=== PATIENT | female | born 1980 | race African-American/Black ===

== ENCOUNTER 2016-12-22 07:38 | Emergency (ER) | payer MEDICAID ==
[~2016-12-22] VITALS: Ht 152.4 cm; Wt 70.0 kg
[~2016-12-22 07:38] MED LIST: BUTA1CAP PO; ZOFR8TAB4 SL
[2016-12-22 07:40] VITALS: BP 126/78; PULSE 100; RESP 17; TEMP 98.6; O2SAT 97
--- NOTE | 2016-12-22 08:12 | PD ---
HPI Chief Complaint: Musculoskeletal Complaint Time Seen by Provider: 08:02 Travel History International Travel<30 days: No Contact w/Intl Traveler<30days: No Traveled to known affect area: No History of Present Illness HPI 36-year-old female complains of right hip pain. Patient states she started having sharp pain posterior aspect the right hip about 3 months ago. Patient states that the pain has been intermittent since then. Patient states the pain is sharp stopping pain started on the posterior aspect the right hip with radiation down the right leg. Patient denies any injury. Patient denies any fever chills. Patient status post knee surgery and left shoulder surgery in the past. Patient has been taking Advil Tylenol for pain. PFSH Past Medical History Ulcer: Yes ?: Not LMP: 1 WEEK AGO Dilation and Curettage (D&C): Yes Tubal Ligation: Yes Social History Alcohol Use: No Tobacco Use: No Substance Use: No Allergies-Medications (Allergen,Severity, Reaction): Coded Allergies: Seafood (Verified Allergy, Intermediate, SWELLING, 12/22/16) Reported Meds & Prescriptions Reported Meds & Active Scripts Active No Active Prescriptions or Reported Medications Review of Systems General / Constitutional: No: Fever Eyes: No: Visual changes HENT: No: Headaches Cardiovascular: No: Chest Pain or Discomfort Respiratory: No: Shortness of Breath Gastrointestinal: No: Abdominal Pain Genitourinary: No: Dysuria Musculoskeletal: Positive: Pain Skin: No Rash Neurologic: No: Weakness Psychiatric: No: Depression Endocrine: No: Polydipsia Hematologic/Lymphatic: No: Easy Bruising Physical Exam Narrative GENERAL: Well-nourished, well-developed patient. SKIN: Focused skin assessment warm/dry. HEAD: Normocephalic. EYES: No scleral icterus. No injection or drainage. NECK: Supple, trachea midline. No JVD or lymphadenopathy. CARDIOVASCULAR: Regular rate and rhythm without murmurs, gallops, or rubs. RESPIRATORY: Breath sounds equal bilaterally. No accessory muscle use. GASTROINTESTINAL: Abdomen soft, non-tender, nondistended. MUSCULOSKELETAL: No cyanosis, or edema. BACK: Patient has moderate tenderness on palpation posterior aspect the right hip, sciatic notch area, without obvious deformity. No CVA tenderness. Positive straight leg raising right leg. Neurologic exam normal. Data Data Last Documented VS Vital Signs Date Time Temp Pulse Resp B/P Pulse Ox O2 Delivery O2 Flow Rate FiO2 8/5/17 07:40 98.6 100 17 126/78 97 Orders Hip, Uni(Ap&Lat) W Ap Pelvis (12/22/16 08:08) Dexamethasone Inj (Decadron Inj) (12/22/16 08:15) MDM Medical Decision Making Medical Screen Exam Complete: Yes Emergency Medical Condition: Yes Interpretation(s) X-ray right hip shows no acute bony injury. Differential Diagnosis Differential diagnosis including sciatica, arthralgia, bursitis, tendinitis, fracture, dislocation. Narrative Course 36-year-old female with posterior aspect right hip pain with radiation to the right leg. Decadron 8 mg IM. Diagnosis Primary Impression: Right sided sciatica Patient Instructions: General Instructions Additional Instructions: Take medication as directed. Follow-up with personal physician and orthopedist. Return if worse. Med/Other Pt SpecificInfo: Prescription(s) given Scripts Prednisone 20 Mg Tab20 Mg PO DAILY #10 TAB Prov:Los Armijo MD 12/22/16 Tramadol (Ultram)50 Mg Tab50 Mg PO Q6H PRN (PAIN) #20 TAB Prov:Los Armijo MD 12/22/16 Meloxicam (Mobic)15 Mg Tab15 Mg PO DAILY #30 TAB Prov:Los Armijo MD 12/22/16 Disposition: 01 DISCHARGE HOME Condition: Stable Los Armijo MD Dec 22, 2016 08:12
[2016-12-22] MEDS ORDERED: DEXAMETHASONE SOD PHOS 4 MG/ML VIAL IM ONE (08:15)
--- NOTE | 2016-12-22 08:55 | RADRPT ---
EXAM DATE/TIME: 12/22/2016 08:11 [place] COMPARISON: No previous studies available for comparison. INDICATIONS : Right posterior hip pain for 2 months. MEDICAL HISTORY : None. SURGICAL HISTORY : None. ENCOUNTER: Initial ACUITY: 2 months PAIN SCORE: 8/10 LOCATION: Right posterior hip. FINDINGS: AP view of the pelvis with 2 views of the right hip demonstrate no fracture or dislocation. Mineraliz ation is within normal limits. There is no significant arthropathy. No soft tissue abnormality is bailey ntified. CONCLUSION: No acute abnormality is identified. Song Funk MD on December 22, 2016 at 8:52 Board Certified Radiologist. This report was verified electronically.
[2016-12-22] MEDS ORDERED: PRED20 PO (09:08)
[2016-12-22] MEDS ORDERED: ULTR50TA5 PO (09:08)
[2016-12-22] MEDS ORDERED: MOBI15TA PO (09:08)
== END 2016-12-22 09:54 | disposition home or self-care (01) ==
LOC: PHED 07:38
DX: M54.31 Sciatica, right side (principal)
CPT/HCPCS: 73502; 96372; 99284; J1100

== ENCOUNTER 2017-05-16 08:06 | Emergency (ER) | payer MEDICAID ==
[~2017-05-16] VITALS: Ht 172.7 cm; Wt 68.0 kg
[~2017-05-16 08:06] MED LIST changes: -BUTA1CAP PO; +MOBI15TA PO; +PRED20 PO; +TRAM50 PO; -ZOFR8TAB4 SL
[2017-05-16 08:08] VITALS: BP 122/83; PULSE 97; RESP 16; TEMP 98.5; O2SAT 98
[2017-05-16] MEDS ORDERED: SODIUM CHLOR 0.9% 1000 ML INJ 1,000 ML IV SCH (08:29)
[2017-05-16] MEDS ORDERED: SODIUM CHLORIDE 0.9% FLUSH 10 ML FLUSH IV FLUSH PRN (08:30)
[2017-05-16] MEDS ORDERED: ONDANSETRON HCL 4 MG/2 ML VIAL IVP ONE (08:30)
[2017-05-16] MEDS ORDERED: HYDROmorphone HCL PF 2 MG/ML VIAL IVS ONE (08:30)
--- NOTE | 2017-05-16 08:37 | PD ---
HPI Chief Complaint: GI Complaint Time Seen by Provider: 08:25 Travel History International Travel<30 days: No Contact w/Intl Traveler<30days: No Traveled to known affect area: No History of Present Illness HPI This 37-year-old female is complaining of lower abdominal pain. She says she been having the pain for about 2 days. The pain does come and go. She has vomited 3 times. She has some chronic abdominal pain for which she is on ulcer medication. This pain seems a little bit different than her usual pain. She has had a tubal ligation in the past. She is not aware of fever or chills [facility] Past Medical History Ulcer: Yes ?: Not LMP: 04/23/17 Dilation and Curettage (D&C): Yes Tubal Ligation: Yes Social History Alcohol Use: No Tobacco Use: No Substance Use: No Allergies-Medications (Allergen,Severity, Reaction): Coded Allergies: Fish Containing Products (Unverified Allergy, Intermediate, SWELLING, ) Reported Meds & Prescriptions Reported Meds & Active Scripts Active No Active Prescriptions or Reported Medications Review of Systems Except as stated in HPI: all other systems reviewed are Neg General / Constitutional: No: Fever, Chills Eyes: No: Diploplia, Blurred Vision HENT: No: Headaches, Vertigo Cardiovascular: No: Chest Pain or Discomfort, Palpitations Respiratory: No: Cough, Shortness of Breath Gastrointestinal: Positive: Nausea, Vomiting, Abdominal Pain Genitourinary: No: Frequency, Dysuria Skin: No Rash, No Itching Neurologic: No: Weakness, Dizziness Psychiatric: No: Anxiety, Depression Endocrine: No: Heat Intolerance Physical Exam Narrative GENERAL: Well-developed female SKIN: Focused skin assessment warm/dry. HEAD: Atraumatic. Normocephalic. EYES: Pupils equal and round. No scleral icterus. No injection or drainage. ENT: No nasal bleeding or discharge. Mucous membranes pink and moist. NECK: Trachea midline. No JVD. CARDIOVASCULAR: Regular rate and rhythm. No murmur appreciated. RESPIRATORY: No accessory muscle use. Clear to auscultation. Breath sounds equal bilaterally. GASTROINTESTINAL: Abdomen soft, non-tender, nondistended. Hepatic and splenic margins not palpable. Pelvic: Os is closed. Slight discharge. No pain with movement of the cervix MUSCULOSKELETAL: No obvious deformities. No clubbing. No cyanosis. No edema. NEUROLOGICAL: Awake and alert. No obvious cranial nerve deficits. Motor grossly within normal limits. Normal speech. PSYCHIATRIC: Appropriate mood and affect; insight and judgment normal. Data Data Last Documented VS Vital Signs Date Time Temp Pulse Resp B/P (MAP) Pulse Ox O2 Delivery O2 Flow Rate FiO2 05/16/17 11:25 74 16 103/65 (78) 100 05/16/17 10:18 Room Air 05/16/17 08:08 98.5 Orders Orders Complete Blood Count With Diff (05/16/17 08:29) Comprehensive Metabolic Panel (05/16/17 08:29) Urinalysis - C+S If Indicated (05/16/17 08:29) Iv Access Insert/Monitor (05/16/17 08:29) Ecg Monitoring (05/16/17 08:29) Oximetry (05/16/17 08:29) Hydromorphone Pf Inj (Dilaudid Pf Inj) (05/16/17 08:30) Ondansetron Inj (Zofran Inj) (05/16/17 08:30) Sodium Chlor 0.9% 1000 Ml Inj (Ns 1000 M (05/16/17 08:29) Sodium Chloride 0.9% Flush (Ns Flush) (05/16/17 08:30) Ed Urine Pregnancytest Poc (05/16/17 08:29) Lipase (05/16/17 08:29) Urine Culture (05/16/17 09:10) Gc And Chlamydia Pcr (05/16/17 10:58) Wet Prep Profile (05/16/17 10:58) Ceftriaxone Inj (Rocephin Inj) (05/16/17 11:00) Labs Laboratory Tests Test 05/16/17 09:00 05/16/17 09:10 05/16/17 11:00 White Blood Count 4.2 TH/MM3 Red Blood Count 4.09 MIL/MM3 Hemoglobin 12.1 GM/DL Hematocrit 37.8 % Mean Corpuscular Volume 92.4 FL Mean Corpuscular Hemoglobin 29.7 PG Mean Corpuscular Hemoglobin Concent 32.2 % Red Cell Distribution Width 13.6 % Platelet Count 223 TH/MM3 Mean Platelet Volume 10.1 FL Neutrophils (%) (Auto) 58.5 % Lymphocytes (%) (Auto) 31.6 % Monocytes (%) (Auto) 7.9 % Eosinophils (%) (Auto) 1.2 % Basophils (%) (Auto) 0.8 % Neutrophils # (Auto) 2.5 TH/MM3 Lymphocytes # (Auto) 1.3 TH/MM3 Monocytes # (Auto) 0.3 TH/MM3 Eosinophils # (Auto) 0.1 TH/MM3 Basophils # (Auto) 0.0 TH/MM3 CBC Comment AUTO DIFF Differential Comment AUTO DIFF CONFIRMED Blood Urea Nitrogen LESS THAN 3 MG/DL Creatinine 0.80 MG/DL Random Glucose 92 MG/DL Total Protein 8.2 GM/DL Albumin 3.7 GM/DL Calcium Level 8.8 MG/DL Alkaline Phosphatase 52 U/L Aspartate Amino Transf (AST/SGOT) 14 U/L Alanine Aminotransferase (ALT/SGPT) 14 U/L Total Bilirubin 0.9 MG/DL Sodium Level 143 MEQ/L Potassium Level 3.7 MEQ/L Chloride Level 103 MEQ/L Carbon Dioxide Level 28.4 MEQ/L Anion Gap 12 MEQ/L Estimat Glomerular Filtration Rate 99 ML/MIN Lipase 66 U/L Urine Color YELLOW Urine Turbidity HAZY Urine pH 6.0 Urine Specific [place] 1.006 Urine Protein NEG mg/dL Urine Glucose (UA) NEG mg/dL Urine Ketones NEG mg/dL Urine Occult Blood MOD Urine Nitrite NEG Urine Bilirubin NEG Urine Leukocyte Esterase TRACE Urine RBC 4-9 /hpf Urine WBC 9-14 /hpf Urine Squamous Epithelial Cells > 8 /hpf Urine Bacteria MANY /hpf Urine Mucus OCC /lpf Microscopic Urinalysis Comment CULTURE INDICATED Clue Cells (Wet Prep) NONE SEEN Vaginal Trichomonas (Wet Prep) NONE SEEN Vaginal Yeast (Wet Prep) NONE SEEN MDM Medical Decision Making Medical Screen Exam Complete: Yes Emergency Medical Condition: Yes Medical Record Reviewed: Yes Differential Diagnosis Differential includes gastroenteritis, nonspecific abdominal pain, UTI, cervicitis Narrative Course White count is normal. Urine does show evidence of urinary tract infection. She'll be on Bactrim released Diagnosis Primary Impression: UTI (urinary tract infection) Scripts Sulfamethoxazole-Trimethoprim (Bactrim DS) 800-160 Mg Tab 1 TAB PO BID for Infection for 7 Days, #14 TAB 0 Refills Prov: Сергей Quintana MD 05/16/17 Disposition: 01 DISCHARGE HOME Condition: Stable Сергей Quintana MD May 16, 2017 08:37
[2017-05-16 08:50] VITALS: RESP 18; O2SAT 98
[2017-05-16 09:18] VITALS: BP 102/67; PULSE 84; RESP 18; O2SAT 98
[2017-05-16 09:27] LABS: AUTOMATED NEUTROPHIL # 2.5 TH/MM3 (1.8-7.7); BASOPHIL % 0.8 % (0.0-2.0); EOSINOPHIL # 0.1 TH/MM3 (0-0.4); EOSINOPHIL % 1.2 % (0.0-4.0); HEMATOCRIT 37.8 % (35.0-46.0); HEMOGLOBIN 12.1 GM/DL (11.6-15.3); LYMPH % 31.6 % (9.0-44.0); LYMPHOCYTE # 1.3 TH/MM3 (1.0-4.8); MEAN CELL VOLUME 92.4 FL (80.0-100.0); MEAN CORPUSCULAR HEMOGLOBIN 29.7 PG (27.0-34.0); MEAN CORPUSCULAR HGB CONC 32.2 % (32.0-36.0); MEAN PLATELET VOLUME 10.1 FL (7.0-11.0); MONO % 7.9 % (0.0-8.0); MONOCYTE # 0.3 TH/MM3 (0-0.9); NEUT % 58.5 % (16.0-70.0); PLATELET COUNT 223 TH/MM3 (150-450); RED BLOOD COUNT 4.09 MIL/MM3 (4.00-5.30); RED CELL DISTRIBUTION WIDTH 13.6 % (11.6-17.2); WHITE BLOOD COUNT 4.2 TH/MM3 (4.0-11.0)
[2017-05-16 09:29] LABS: BILIRUBIN, URINE NEG (NEG); BLOOD, URINE MOD (NEG); GLUCOSE,URINE NEG (NEG); KETONE, URINE NEG (NEG); NITRITE,URINE NEG (NEG); URINE LEUKOCYTE ESTERASE TRACE (NEG)
[2017-05-16 09:30] LABS: URINE COLOR YELLOW (YELLW/STRAW)
[2017-05-16 09:38] LABS: MUCUS URINE OCC /lpf (OCC); SQUAMOUS EPITHELIAL CELL URINE > 8 /hpf (0-5)
[2017-05-16 09:39] LABS: BACTERIA, URINE MANY /hpf
[2017-05-16 09:54] LABS: BLOOD UREA NITROGEN LESS THAN 3 MG/DL (7-18); CHLORIDE 103 MEQ/L (98-107); GLOMERULAR FILTRATION RATE 99 ML/MIN (>89); GLUCOSE,RANDOM 92 MG/DL (74-106); SODIUM (NA) 143 MEQ/L (136-145)
[2017-05-16 10:17] LABS: CALCIUM 8.8 MG/DL (8.5-10.1)
[2017-05-16 10:18] VITALS: BP 103/66; PULSE 76; RESP 16; O2SAT 98
[2017-05-16 10:18] LABS: ALBUMIN 3.7 GM/DL (3.4-5.0); BICARBONATE 28.4 MEQ/L (21.0-32.0); LIPASE 66 U/L (73-393)
[2017-05-16 10:21] LABS: AST (GOT) 14 U/L (15-37)
[2017-05-16 10:22] LABS: TOTAL BILIRUBIN ADULT 0.9 MG/DL (0.2-1.0); TOTAL PROTEIN 8.2 GM/DL (6.4-8.2)
[2017-05-16 10:24] LABS: ALT (GPT) 14 U/L (10-53)
[2017-05-16 10:28] LABS: ALKALINE PHOSPHATASE 52 U/L (45-117)
[2017-05-16] MEDS ORDERED: cefTRIAXone INJ 1,000 MG in SODIUM CHLORIDE 0.9% INJ 100 ML IV ONE (11:00)
[2017-05-16 11:25] VITALS: BP 103/65; PULSE 74; RESP 16; O2SAT 100
[2017-05-16] MEDS ORDERED: BACT800T5 PO (12:03)
[2017-05-16] MEDS ORDERED: HYDR-2376 PO (12:39)
[2017-05-16] MEDS ORDERED: HYDR-3580 PO (13:22)
== END 2017-05-16 12:47 | disposition home or self-care (01) ==
LOC: PHED 08:06
DX: N39.0 Urinary tract infection, site not specified (principal)
CPT/HCPCS: 80053; 81001; 83690; 84703; 85025; 87086; 87210; 87491; 87591; 96361; 96365; 96375; 99284; J0696; J1170; J2405; J7030

== ENCOUNTER 2017-06-06 17:58 | Emergency (ER) | payer MEDICAID ==
[~2017-06-06 17:58] MED LIST changes: +BACT800T5 PO; +HYDR-2376 PO; +HYDR-3580 PO; -MOBI15TA PO; -PRED20 PO; -TRAM50 PO
[2017-06-06 18:07] VITALS: BP 126/79; PULSE 90; RESP 20; TEMP 97.3
[2017-06-06 18:22] LABS: BILIRUBIN, URINE NEG (NEG); BLOOD, URINE TRACE (NEG); GLUCOSE,URINE NEG (NEG); KETONE, URINE NEG (NEG); NITRITE,URINE NEG (NEG); URINE LEUKOCYTE ESTERASE TRACE (NEG)
[2017-06-06 18:29] LABS: URINE COLOR YELLOW (YELLW/STRAW)
[2017-06-06 18:30] LABS: BACTERIA, URINE MOD /hpf; SQUAMOUS EPITHELIAL CELL URINE > 8 /hpf (0-5)
[2017-06-06] MEDS ORDERED: VALT1TAB PO (19:03)
[2017-06-06] MEDS ORDERED: MACR100C2 PO (19:03)
--- NOTE | 2017-06-06 19:03 | PD ---
HPI Chief Complaint: Complaint Time Seen by Provider: 18:38 Travel History International Travel<30 days: No Contact w/Intl Traveler<30days: No Traveled to known affect area: No History of Present Illness HPI patient comes in with two separate complaints....one is started to get a cold sore on her lip, which she knows she has a history of herpes and is requesting some valtrex...patient denies any vaginal lesions..... patient's second complaint is that over the last 2 days she has had frequency, urgency, dysuria, and feels some pressure over suprapubic area. patient denies any alleviating/aggravating factors.....patient denies fever/cough/runny nose/n/ v/d/ PFSH Past Medical History Immunizations Current: Yes Ulcer: Yes Influenza Vaccination: No ?: Not LMP: MAY 20 2017 Dilation and Curettage (D&C): Yes Tubal Ligation: Yes Past Surgical History Surgical History: No Previous Surgery Social History Alcohol Use: No Tobacco Use: No Substance Use: No Allergies-Medications (Allergen,Severity, Reaction): Coded Allergies: Fish Containing Products (Unverified Allergy, Intermediate, SWELLING, ) Reported Meds & Prescriptions Reported Meds & Active Scripts Active Valtrex (Valacyclovir HCl) 1,000 Mg Tab 1,000 Mg PO TID 10 Days Macrobid (Nitrofurantoin Monohydrate Macrocrystals) 100 Mg Capsule 100 Mg PO BID 7 Days Hydrocodone-Acetaminophen 7.5-300 Mg Tab 1 Tab PO Q4H PRN Bactrim DS (Sulfamethoxazole-Trimethoprim) 800-160 Mg Tab 1 Tab PO BID 7 Days Review of Systems Except as stated in HPI: all other systems reviewed are Neg General / Constitutional: No: Fever Eyes: No: Visual changes HENT: No: Headaches Cardiovascular: No: Chest Pain or Discomfort Respiratory: No: Shortness of Breath Gastrointestinal: No: Abdominal Pain Genitourinary: Positive: Urgency, Frequency, Dysuria Musculoskeletal: No: Pain Skin: No Rash Neurologic: No: Weakness Psychiatric: No: Depression Endocrine: No: Polydipsia Hematologic/Lymphatic: No: Easy Bruising Physical Exam Narrative GENERAL: SKIN: Warm and dry. HEAD: Atraumatic. Normocephalic. EYES: Pupils equal and round. No scleral icterus. No injection or drainage. ENT: No nasal bleeding or discharge. Mucous membranes pink and moist....small vesicular lesion on inferior lip, not extending intraorally NECK: Trachea midline. No JVD. CARDIOVASCULAR: Regular rate and rhythm. RESPIRATORY: No accessory muscle use. Clear to auscultation. Breath sounds equal bilaterally. GASTROINTESTINAL: Abdomen soft, non-tender, nondistended. MUSCULOSKELETAL: Extremities without clubbing, cyanosis, or edema. No obvious deformities. NEUROLOGICAL: Awake and alert. No obvious cranial nerve deficits. Motor grossly within normal limits. Five out of 5 muscle strength in the arms and legs. Normal speech. PSYCHIATRIC: Appropriate mood and affect; insight and judgment normal. Data Data Last Documented VS Vital Signs Date Time Temp Pulse Resp B/P (MAP) Pulse Ox O2 Delivery O2 Flow Rate FiO2 06/06/17 18:07 97.3 90 20 126/79 (95) Orders Orders Urinalysis - C+S If Indicated (06/06/17 18:02) Ed Urine Pregnancytest Poc (06/06/17 18:02) Urine Culture (06/06/17 18:00) Ed Discharge Order (06/06/17 19:31) Labs Laboratory Tests Test 06/06/17 18:00 Urine Color YELLOW Urine Turbidity CLEAR Urine pH 6.0 Urine Specific [place] 1.020 Urine Protein NEG mg/dL Urine Glucose (UA) NEG mg/dL Urine Ketones NEG mg/dL Urine Occult Blood TRACE Urine Nitrite NEG Urine Bilirubin NEG Urine Leukocyte Esterase TRACE Urine RBC 3-5 /hpf Urine WBC 3-5 /hpf Urine Squamous Epithelial Cells > 8 /hpf Urine Bacteria MOD /hpf Microscopic Urinalysis Comment CULTURE INDICATED MDM Medical Decision Making Medical Screen Exam Complete: Yes Emergency Medical Condition: Yes Medical Record Reviewed: Yes Differential Diagnosis preg related v uti v hsv 1 lesion Narrative Course neg preg, ua c/w uti. valtrex refilled Diagnosis Primary Impression: uti Additional Impression: HSV-1 infection Patient Instructions: General Instructions, Urinary Tract Infection in Women ( [place]) Scripts Valacyclovir (Valtrex) 1,000 Mg Tab 1000 MG PO TID for Mgmt Viral Infection for 10 Days, #30 TAB 1 Refill Prov: Ruben Orozco MD 06/06/17 Nitrofurantoin Monohydrate Macrocrystals (Macrobid) 100 Mg Capsule 100 MG PO BID for Infection for 7 Days, #14 CAP 0 Refills Prov: Ruben Orozco MD 06/06/17 Disposition: 01 DISCHARGE HOME Condition: Stable Ruben Orozco MD Jun 06, 2017 19:03
== END 2017-06-06 19:46 | disposition home or self-care (01) ==
LOC: PHED 17:58
DX: N39.0 Urinary tract infection, site not specified (principal); B00.1 Herpesviral vesicular dermatitis
CPT/HCPCS: 81001; 84703; 87086; 99284

== ENCOUNTER 2017-08-04 21:09 | Emergency (ER) | payer MEDICAID, OTHER ==
[~2017-08-04] VITALS: Ht 170.2 cm; Wt 68.0 kg
[~2017-08-04 21:09] MED LIST changes: -HYDR-3580 PO; +MACR100C2 PO; +VALT1TAB PO
[2017-08-04 21:19] VITALS: BP 117/80; PULSE 77; RESP 20; TEMP 98.4; O2SAT 98
[2017-08-04 21:24] VITALS: BP 115/68; PULSE 84; RESP 20; TEMP 98; O2SAT 98
[2017-08-04 21:29] VITALS: RESP 20
[2017-08-04] MEDS ORDERED: SODIUM CHLOR 0.9% 1000 ML INJ 1,000 ML IV SCH (21:30)
--- NOTE | 2017-08-04 21:53 | PD ---
HPI Chief Complaint: OD/ Ingestion Time Seen by Provider: 21:23 Travel History International Travel<30 days: No Contact w/Intl Traveler<30days: No Traveled to known affect area: No History of Present Illness HPI The patient is a 37 year old female who presents to the [facility] emergency department with a history of being brought in as a Burris act due to overdosing on multiple unknown medications earlier today. According to the Burris act, the patient's children were concerned that the patient was intentionally overdosing on medicines. The patient herself reports that she has been depressed over the last 2 years since her parents . She denies being placed on any antidepressants. She denies ever trying to harm herself in the past. She reports that she was just "trying to sleep". She reports that recently over the last 1-2 weeks she has had a headache. She reports that she took 3 of her headache medications, the generic medication for Fioricet. She reports that she is pain-free currently. The patient is tearful on examination. The patient also reports that she took another pain medication that starts with a G. She denies taking any other medications. On review of systems otherwise she denies having any recent fevers,cough, congestion, neck pain, chest pain, shortness of breath, abdominal pain, vomiting, diarrhea, urinary symptoms, or other neurologic symptoms. LMP: Began today. PFSH Past Medical History Narrative Medical The patient's past medical history is significant for peptic ulcer disease, arthritis, headaches diagnosed a year ago, and anemia. Immunizations Current: Yes Ulcer: Yes Tetanus Vaccination: Unknown Influenza Vaccination: No ?: Not Dilation and Curettage (D&C): Yes Tubal Ligation: Yes Past Surgical History Narrative Surgical The patient's past surgical history is significant for bilateral knee surgery, left rotator cuff repair 2, D&C. Social History Alcohol Use: No Tobacco Use: No Substance Use: No Allergies-Medications (Allergen,Severity, Reaction): Coded Allergies: Fish Containing Products (Unverified Allergy, Intermediate, SWELLING, 08/04) Reported Meds & Prescriptions Reported Meds & Active Scripts Active Reported Flexeril (Cyclobenzaprine HCl) 5 Mg Tab 5 Mg PO TID PRN Oxycodone (Oxycodone HCl) 5 Mg Tab 5 Mg PO Q6H PRN Fioricet (Ekasuiedfm-Cciyprurpbgnj-Epvznmmd) 50-300-40 Mg Cap 1-2 Cap PO Q6H PRN Review of Systems Except as stated in HPI: all other systems reviewed are Neg General / Constitutional: No: Fever Eyes: No: Visual changes HENT: Positive: Headaches, No: Rhinorrhea, Congestion, Neck Pain Cardiovascular: No: Chest Pain or Discomfort Respiratory: No: Shortness of Breath Gastrointestinal: No: Abdominal Pain Genitourinary: No: Dysuria Musculoskeletal: No: Pain Skin: No Rash Neurologic: Positive: Headache, No: Weakness, Focal Abnormalities, Coordination Problem, Change in Mentation, Slurred Speech, Sensory Disturbance Psychiatric: Positive: Depression, Suicidal Ideations, Mood Disorder, No: Substance Abuse, Homicidal Ideation Endocrine: No: Polydipsia Hematologic/Lymphatic: No: Easy Bruising Physical Exam Narrative General: The patient is a well-developed well-nourished female in no acute distress. Head and Neck exam: Head is normocephalic atraumatic. Eyes: EOMI, pupils are equal round and reactive to light. Nose: Midline septum with pink mucous membranes Mouth: Dentition unremarkable. Moist mucus membranes. Posterior oropharynx is not erythematous. No tonsillar hypertrophy. Uvula midline. Airway patent. Neck: No palpable lymphadenopathy. No nuchal rigidity. No thyromegaly. Cardiovascular: Regular rate and rhythm without murmurs, gallops, or rubs. Lungs: Clear to auscultation bilaterally. No wheezes, rhonchi, or rales. Abdomen: Soft, without tenderness to palpation in all 4 quadrants of the abdomen. No guarding, rebound, or rigidity. Normal bowel sounds are audible, no tenderness on palpation of McBurney's point. Negative Guan sign. Extremities: No clubbing, cyanosis, or edema. 2+ pulses in all 4 extremities. Back: No spinous process tenderness to palpation. No costovertebral angle tenderness to palpation. Neurologic Exam: Grossly nonfocal. Skin Exam: No rash noted. Intact skin that is warm and dry. Data Data Last Documented VS Vital Signs Date Time Temp Pulse Resp B/P (MAP) Pulse Ox O2 Delivery O2 Flow Rate FiO2 08/05/17 07:00 08/05/17 07:00 Room Air 08/05/17 06:22 98.7 89 18 98 Orders Orders Electrocardiogram (08/04/17 21:23) Complete Blood Count With Diff (08/04/17 21:23) Comprehensive Metabolic Panel (08/04/17 21:23) Prothrombin Time / Inr (Pt) (08/04/17:) Act Partial Throm Time (Ptt) (08/04/17:) Urinalysis - C+S If Indicated (08/04/17:) Iv Access Insert/Monitor (08/04/17:23) Ecg Monitoring (08/04/17:) Oximetry (08/04/17 21:23) Ed Urine Pregnancytest Poc (08/04/17 21:23) Drug Screen, Random Urine (08/04/17:) Alcohol (Ethanol) (08/04/17:23) Salicylates (Aspirin) (08/04/17 21:23) Tylenol (Acetaminophen) (08/04/17:23) Sodium Chlor 0.9% 1000 Ml Inj (Ns 1000 M (08/04/17 21:30) Tylenol (Acetaminophen) (08/05/17 01:35) Potassium Chloride (Kcl) (08/04/17 23:00) Psych Screen (08/04/17 23:29) Electrocardiogram (08/05/17 02:25) Ed Discharge Order (08/05/17 08:54) Labs Laboratory Tests Test 08/04/17 21:35 08/05/17 00:56 08/05/17 01:07 White Blood Count 5.7 TH/MM3 Red Blood Count 4.23 MIL/MM3 Hemoglobin 13.0 GM/DL Hematocrit 39.1 % Mean Corpuscular Volume 92.3 FL Mean Corpuscular Hemoglobin 30.8 PG Mean Corpuscular Hemoglobin Concent 33.4 % Red Cell Distribution Width 14.7 % Platelet Count 254 TH/MM3 Mean Platelet Volume 9.7 FL Neutrophils (%) (Auto) 33.5 % Lymphocytes (%) (Auto) 53.8 % Monocytes (%) (Auto) 9.4 % Eosinophils (%) (Auto) 2.5 % Basophils (%) (Auto) 0.8 % Neutrophils # (Auto) 1.9 TH/MM3 Lymphocytes # (Auto) 3.1 TH/MM3 Monocytes # (Auto) 0.5 TH/MM3 Eosinophils # (Auto) 0.1 TH/MM3 Basophils # (Auto) 0.0 TH/MM3 CBC Comment DIFF FINAL Differential Comment Prothrombin Time 10.9 SEC Prothromb Time International Ratio 1.1 RATIO Activated Partial Thromboplast Time 28.0 SEC Blood Urea Nitrogen 8 MG/DL Creatinine 0.96 MG/DL Random Glucose 86 MG/DL Total Protein 8.8 GM/DL Albumin 3.7 GM/DL Calcium Level 8.8 MG/DL Alkaline Phosphatase 66 U/L Aspartate Amino Transf (AST/SGOT) 13 U/L Alanine Aminotransferase (ALT/SGPT) 18 U/L Total Bilirubin 0.3 MG/DL Sodium Level 140 MEQ/L Potassium Level 3.4 MEQ/L Chloride Level 104 MEQ/L Carbon Dioxide Level 24.9 MEQ/L Anion Gap 11 MEQ/L Estimat Glomerular Filtration Rate 80 ML/MIN Salicylates Level LESS THAN 1.7 MG/DL Acetaminophen Level 11.9 MCG/ML LESS THAN 2.0 MCG/ML Ethyl Alcohol Level LESS THAN 3 MG/DL Urine Color YELLOW Urine Turbidity HAZY Urine pH 5.5 Urine Specific [place] 1.028 Urine Protein TRACE mg/dL Urine Glucose (UA) NEG mg/dL Urine Ketones 40 mg/dL Urine Occult Blood SMALL Urine Nitrite NEG Urine Bilirubin NEG Urine Urobilinogen LESS THAN 2.0 MG/DL Urine Leukocyte Esterase TRACE Urine RBC 3 /hpf Urine WBC 2 /hpf Urine Squamous Epithelial Cells 4 /hpf Urine Bacteria RARE /hpf Urine Mucus FEW /lpf Microscopic Urinalysis Comment CULT NOT INDICATED Urine Opiates Screen NEG Urine Barbiturates Screen POS Urine Amphetamines Screen NEG Urine Benzodiazepines Screen NEG Urine Cocaine Screen NEG Urine Cannabinoids Screen NEG MDM Medical Decision Making Medical Screen Exam Complete: Yes Emergency Medical Condition: Yes Medical Record Reviewed: Yes Differential Diagnosis Depression with suicidal ideations, versus suicidal gesture, versus misuse of prescribed medications. Narrative Course During the course of the patient's emergency department visit, the patient's history, examination, and differential diagnosis were reviewed with the patient. The patient was placed on a body cleaner with oximetry and frequent blood pressure monitoring. The patient had IV access obtained and blood work sent for analysis. The patient had a EKG done on arrival that shows a sinus rhythm with occasional supraventricular premature complexes, heart rate of 87, QRS duration 89 ms, QTC [address] segment elevation, T waves are inverted in V1. The patient was initially provided normal saline at 100 mils potassium oral supplementation when her potassium was noted to be slightly low. The patient's laboratory studies were reviewed and remarkable for A CBC that is unremarkable, chemistry panel remarkable for potassium of 3.4, GFR 80, AST 13, total protein 8.8. Urine drug screen is positive for barbiturates, initial Tylenol level 11.9 which was repeated to, salicylate less than 1.7. ETOH less than 3. Repeat Tylenol level was decreasing. Repeat EKG shows a sinus rhythm heart rate of 79, QRS duration 88 ms, QTC [address] segment elevation, T waves inverted in V1. The patient has been medically cleared for evaluation by the psychiatric screener and psychiatrist under a Burris act. Diagnosis Primary Impression: Depression with suicidal ideation Eli Good MD Aug 04, 2017 21:53
[2017-08-04 22:01] LABS: AUTOMATED NEUTROPHIL # 1.9 TH/MM3 (1.8-7.7); BASOPHIL % 0.8 % (0.0-2.0); EOSINOPHIL # 0.1 TH/MM3 (0-0.4); EOSINOPHIL % 2.5 % (0.0-4.0); HEMATOCRIT 39.1 % (35.0-46.0); LYMPH % 53.8 % (9.0-44.0); LYMPHOCYTE # 3.1 TH/MM3 (1.0-4.8); MEAN CELL VOLUME 92.3 FL (80.0-100.0); MEAN CORPUSCULAR HEMOGLOBIN 30.8 PG (27.0-34.0); MEAN CORPUSCULAR HGB CONC 33.4 % (32.0-36.0); MEAN PLATELET VOLUME 9.7 FL (7.0-11.0); MONO % 9.4 % (0.0-8.0); MONOCYTE # 0.5 TH/MM3 (0-0.9); NEUT % 33.5 % (16.0-70.0); PLATELET COUNT 254 TH/MM3 (150-450); RED BLOOD COUNT 4.23 MIL/MM3 (4.00-5.30); RED CELL DISTRIBUTION WIDTH 14.7 % (11.6-17.2); WHITE BLOOD COUNT 5.7 TH/MM3 (4.0-11.0)
[2017-08-04 22:11] LABS: INTERNATIONAL NORMALIZED RATIO 1.1 RATIO; PROTHROMBIN TIME - PATIENT 10.9 SEC (9.8-11.6)
[2017-08-04 22:24] LABS: ALBUMIN 3.7 GM/DL (3.4-5.0); AST (GOT) 13 U/L (15-37); BICARBONATE 24.9 MEQ/L (21.0-32.0); BLOOD UREA NITROGEN 8 MG/DL (7-18); CALCIUM 8.8 MG/DL (8.5-10.1); CHLORIDE 104 MEQ/L (98-107); CREATININE 0.96 MG/DL (0.50-1.00); GLOMERULAR FILTRATION RATE 80 ML/MIN (>89); GLUCOSE,RANDOM 86 MG/DL (74-106); SODIUM (NA) 140 MEQ/L (136-145)
[2017-08-04 22:25] LABS: ALT (GPT) 18 U/L (10-53)
[2017-08-04 22:27] LABS: ACETAMINOPHEN 11.9 MCG/ML (10.0-30.0); ALKALINE PHOSPHATASE 66 U/L (45-117); TOTAL BILIRUBIN ADULT 0.3 MG/DL (0.2-1.0); TOTAL PROTEIN 8.8 GM/DL (6.4-8.2)
[2017-08-04] MEDS ORDERED: POTASSIUM CHLORIDE 20 MEQ CONTROLLED RELEASE TAB PO ONE (23:00)
[2017-08-04] MEDS ORDERED: OXYC-392 PO (23:27)
[2017-08-04] MEDS ORDERED: BUTA1CAP PO (23:27)
[2017-08-04 23:33] VITALS: BP 110/63; PULSE 77; RESP 20; TEMP 98.2; O2SAT 98
[2017-08-05 01:19] LABS: BACTERIA, URINE RARE /hpf; BILIRUBIN, URINE NEG (NEG); BLOOD, URINE SMALL (NEG); GLUCOSE,URINE NEG (NEG); KETONE, URINE 40 mg/dL (NEG); MUCUS URINE FEW /lpf (OCC); NITRITE,URINE NEG (NEG); PH, URINE 5.5 (5.0-8.5); SQUAMOUS EPITHELIAL CELL URINE 4 /hpf (0-5); URINE COLOR YELLOW (YELLW/STRAW); URINE LEUKOCYTE ESTERASE TRACE (NEG)
[2017-08-05] MEDS ORDERED: CYCL5TAB PO (01:59)
[2017-08-05 02:30] VITALS: BP 107/66; PULSE 82; RESP 20; TEMP 98.3; O2SAT 98
[2017-08-05 04:23] VITALS: BP 116/70; PULSE 89; RESP 18; TEMP 98.4; O2SAT 100
[2017-08-05 06:22] VITALS: BP 114/68; PULSE 89; RESP 18; TEMP 98.7; O2SAT 98
--- NOTE | 2017-08-05 08:54 | PD ---
Physical Exam Date Seen by Provider: Aug 05, 2017 Time Seen by Provider: 08:52 Narrative 37-year-old female previously Burris acted and medically cleared for psychiatric evaluation, has been evaluated by Dr. Burks and felt to be psychiatrically stable for discharge at this time. Patient remains medically stable at this time. Follow-up will be based on Dr. Burks's note. Data Data Last Documented VS Vital Signs Date Time Temp Pulse Resp B/P (MAP) Pulse Ox O2 Delivery O2 Flow Rate FiO2 08/05/17 06:22 98.7 89 18 114/68 (83) 98 Room Air Orders Orders Electrocardiogram (08/04/17 21:23) Complete Blood Count With Diff (08/04/17 21:23) Comprehensive Metabolic Panel (08/04/17 21:23) Prothrombin Time / Inr (Pt) (08/04/17 21:23) Act Partial Throm Time (Ptt) (08/04/17 21:23) Urinalysis - C+S If Indicated (08/04/17 21:23) Iv Access Insert/Monitor (08/04/17 21:23) Ecg Monitoring (08/04/17 21:23) Oximetry (08/04/17 21:23) Ed Urine Pregnancytest Poc (08/04/17 21:23) Drug Screen, Random Urine (08/04/17 21:23) Alcohol (Ethanol) (08/04/17 21:23) Salicylates (Aspirin) (08/04/17 21:23) Tylenol (Acetaminophen) (08/04/17 21:23) Sodium Chlor 0.9% 1000 Ml Inj (Ns 1000 M (08/04/17 21:30) Tylenol (Acetaminophen) (08/05/17 01:35) Potassium Chloride (Kcl) (08/04/17 23:00) Psych Screen (08/04/17 23:29) Diet Regular Basic (08/05/17 Breakfast) Electrocardiogram (08/05/17 02:25) Labs Laboratory Tests Test 08/04/17 21:35 08/05/17 00:56 08/05/17 01:07 White Blood Count 5.7 TH/MM3 Red Blood Count 4.23 MIL/MM3 Hemoglobin 13.0 GM/DL Hematocrit 39.1 % Mean Corpuscular Volume 92.3 FL Mean Corpuscular Hemoglobin 30.8 PG Mean Corpuscular Hemoglobin Concent 33.4 % Red Cell Distribution Width 14.7 % Platelet Count 254 TH/MM3 Mean Platelet Volume 9.7 FL Neutrophils (%) (Auto) 33.5 % Lymphocytes (%) (Auto) 53.8 % Monocytes (%) (Auto) 9.4 % Eosinophils (%) (Auto) 2.5 % Basophils (%) (Auto) 0.8 % Neutrophils # (Auto) 1.9 TH/MM3 Lymphocytes # (Auto) 3.1 TH/MM3 Monocytes # (Auto) 0.5 TH/MM3 Eosinophils # (Auto) 0.1 TH/MM3 Basophils # (Auto) 0.0 TH/MM3 CBC Comment DIFF FINAL Differential Comment Prothrombin Time 10.9 SEC Prothromb Time International Ratio 1.1 RATIO Activated Partial Thromboplast Time 28.0 SEC Blood Urea Nitrogen 8 MG/DL Creatinine 0.96 MG/DL Random Glucose 86 MG/DL Total Protein 8.8 GM/DL Albumin 3.7 GM/DL Calcium Level 8.8 MG/DL Alkaline Phosphatase 66 U/L Aspartate Amino Transf (AST/SGOT) 13 U/L Alanine Aminotransferase (ALT/SGPT) 18 U/L Total Bilirubin 0.3 MG/DL Sodium Level 140 MEQ/L Potassium Level 3.4 MEQ/L Chloride Level 104 MEQ/L Carbon Dioxide Level 24.9 MEQ/L Anion Gap 11 MEQ/L Estimat Glomerular Filtration Rate 80 ML/MIN Salicylates Level LESS THAN 1.7 MG/DL Acetaminophen Level 11.9 MCG/ML LESS THAN 2.0 MCG/ML Ethyl Alcohol Level LESS THAN 3 MG/DL Urine Color YELLOW Urine Turbidity HAZY Urine pH 5.5 Urine Specific [place] 1.028 Urine Protein TRACE mg/dL Urine Glucose (UA) NEG mg/dL Urine Ketones 40 mg/dL Urine Occult Blood SMALL Urine Nitrite NEG Urine Bilirubin NEG Urine Urobilinogen LESS THAN 2.0 MG/DL Urine Leukocyte Esterase TRACE Urine RBC 3 /hpf Urine WBC 2 /hpf Urine Squamous Epithelial Cells 4 /hpf Urine Bacteria RARE /hpf Urine Mucus FEW /lpf Microscopic Urinalysis Comment CULT NOT INDICATED Urine Opiates Screen NEG Urine Barbiturates Screen POS Urine Amphetamines Screen NEG Urine Benzodiazepines Screen NEG Urine Cocaine Screen NEG Urine Cannabinoids Screen NEG MDM Medical Record Reviewed: Yes Supervised Visit with MADONNA: Yes Narrative Course 37-year-old female previously Burris acted and medically cleared for psychiatric evaluation, has been evaluated by Dr. Burks and felt to be psychiatrically stable for discharge at this time. Patient remains medically stable at this time. Follow-up will be based on Dr. Burks's note. Diagnosis Primary Impression: Depression with suicidal ideation Patient Instructions: General Instructions Disposition: 01 DISCHARGE HOME Condition: Stable Timothy Son Aug 05, 2017 08:54
--- NOTE | 2017-08-05 10:32 | EKG ---
Date Performed: 08/05/2017 Time Performed: 02:25:31 PTAGE: 37 years EKG: Sinus rhythm NORMAL ECG Since PREVIOUS TRACING , no significant change noted PREVIOUS TRACIN08/04/2017 21.17 DOCTOR: Yaritza Martin Interpretating Date/Time 08/05/2017 10:31:37
--- NOTE | 2017-08-05 10:32 | EKG ---
Date Performed: 08/04/2017 Time Performed: 21:17:48 PTAGE: 37 years EKG: Sinus rhythm WITH OCCASIONAL SUPRAVENTRICULAR PREMATURE COMPLEXES BORDERLINE ECG NO PREVIOUS TRACING DOCTOR: Yaritza Martin Interpretating Date/Time 08/05/2017 10:31:26
--- NOTE | 2017-08-05 12:10 | PD.PSY.CON ---
Provisional Diagnosis Admission Date Arco I. Adjustment disorder with depressed mood Arco II. Unspecified personality disorder Arco III. Migraine, arthritis History of Present Illness Service Psychiatry Consult Requested By ER Reason for Consult Suicidal attempt Primary Care Physician Non-Staff HPI The patient was seen this morning at 7:30 AM. The patient is a 37 year-old -Mexican woman, domiciled in [place] [place] with her 3 kids, single, employed, she denies any previous psychiatric history, denies psychiatric hospitalizations, suicide attempts, she has medical history of arthritis, migraine, who presents to the [facility] emergency department with a history of being brought in as a Burris act due to overdosing on multiple unknown medications earlier today. According to the Burris act, the patient's children were concerned that the patient was intentionally overdosing on medicines. The patient herself reports that she has been depressed over the last 2 years since her parents . She denies being placed on any antidepressants. She denies ever trying to harm herself in the past. She reports that she was just "trying to sleep". She reports that recently over the last 1-2 weeks she has had a headache. She reports that she took 3 of her headache medications, the generic medication for Fioricet. She reports that she is pain-free currently. The patient is tearful on examination. The patient also reports that she took another pain medication that starts with a G. She denies taking any other medications. On psychiatric evaluation today the patient reports to be in a good mood, and a good spirits, ready to be discharged and go back to work. Patient states that she has 3 kids at home that are waiting for her. Patient reports that she was misunderstood by her best friend yesterday. She reports that she has been overwhelmed, at times sad , but denies anhedonia, denies hopelessness, denies helplessness, denies suicidal, denies homicidal ideation. Patient clarifies that she took medication for migraine yesterday without suicidal intentions. She admits that at times she may take more Fioricet than prescribed. She denies the use of illegal drugs and alcohol. Review of Systems Constitutional: DENIES: Diaphoretic episodes, Fatigue, Fever, Weight gain, Weight loss, Chills, Dizziness, Change in appetite, Night Sweats Endocrine: DENIES: Abnorml menstrual pattern, Heat/cold intolerance, Polydipsia , Polyuria, Polyphagia Eyes: DENIES: Blurred vision, Diplopia, Eye inflammation, Eye pain, Vision loss , Photosensitivity, Double Vision Ears, nose, mouth, throat: DENIES: Tinnitus, Hearing loss, Vertigo, Nasal discharge, Oral lesions, Throat pain, Hoarseness, Ear Pain, Running Nose, Epistaxis, Sinus Pain, Toothache, Odynophagia Respiratory: DENIES: Apneas, Cough, Snoring, Wheezing, Hemoptysis, Sputum production, Shortness of breath Cardiovascular: DENIES: Chest pain, Palpitations, Syncope, Dyspnea on Exertion , PND, Lower Extremity Edema, Orthopnea, Claudication Gastrointestinal: DENIES: Abdominal pain, Black stools, Bloody stools, Constipation, Diarrhea, Nausea, Vomiting, Difficulty Swallowing, Anorexia Genitourinary: DENIES: Abnormal vaginal bleeding, Dysmenorrhea, Dyspareunia, Sexual dysfunction, Urinary frequency, Urinary incontinence, Urgency, Hematuria , Dysuria, Nocturia, Vaginal discharge Musculoskeletal: DENIES: Joint pain, Muscle aches, Stiffness, Joint Swelling, Back pain, Neck pain Integumentary: DENIES: Abnormal pigmentation, Pruritus, Rash, Nail changes, Breast masses, Breast skin changes, Nipple discharge Hematologic/lymphatic: DENIES: Bruising, Lymphadenopathy Immunologic/allergic: DENIES: Eczema, Urticaria Neurologic: DENIES: Abnormal gait, Headache, Localized weakness, Paresthesias, Seizures, Speech Problems, Tremor, Poor Balance Psychiatric: DENIES: Anxiety, Confusion, Mood changes, Depression, Hallucinations, Agitation, Suicidal Ideation, Homicidal Ideation, Delusions Past Family Social History Coded Allergies: Fish Containing Products (Unverified Allergy, Intermediate, SWELLING, 08/04) Reported Medications Cyclobenzaprine (Flexeril) 5 Mg Tab, 5 MG PO TID Y for PAIN 1 TO 10 AND/OR AGITATION, #90 TAB 0 Refills 08/05/17 Oxycodone (Oxycodone) 5 Mg Tab, 5 MG PO Q6H Y for PAIN, TAB 0 Refills 08/04/17 Tvgydrcpon-Amyjnbgzgjqqv-Ymljxbub (Fioricet) 50-300-40 Mg Cap, 1-2 CAP PO Q6H Y for HEADACHE, CAP 0 Refills 08/04/17 Discontinued Scripts Valacyclovir (Valtrex) 1,000 Mg Tab, 1000 MG PO TID for Mgmt Viral Infection for 10 Days, #30 TAB 1 Refill Prov:Ruben Orozco MD 06/06/17 Nitrofurantoin Monohydrate Macrocrystals (Macrobid) 100 Mg Capsule, 100 MG PO BID for Infection for 7 Days, #14 CAP 0 Refills Prov:Ruben Orozco MD 06/06/17 Hydrocodone-Acetaminophen (Hydrocodone-Acetaminophen) 7.5-300 Mg Tab, 1 TAB PO Q4H Y for PAIN, #12 TAB 0 Refills Prov:Сергей Quintana MD 05/16/17 Sulfamethoxazole-Trimethoprim (Bactrim DS) 800-160 Mg Tab, 1 TAB PO BID for Infection for 7 Days, #14 TAB 0 Refills Prov:Сергей Quintana MD 05/16/17 Family Psych History No family psychiatric history Social History Patient was born and raised in [place], she lives in [place] had 3 kids, she is single, employed Patient's Strengths (min. 2) No previous psychiatric history Physical Exam Vital Signs Vital Signs Date Time Temp Pulse Resp B/P (MAP) Pulse Ox O2 Delivery O2 Flow Rate FiO2 08/05/17 07:00 08/05/17 07:00 Room Air 08/05/17 06:22 98.7 89 18 98 I/O 08/05/17 08/05/17 08/06/17 08:00 16:00 00:00 Intake Total 1000.00 ml Balance 1000.00 ml Lab Results Test 08/04/17 21:35 08/05/17 00:56 08/05/17 01:07 White Blood Count 5.7 TH/MM3 Red Blood Count 4.23 MIL/MM3 Hemoglobin 13.0 GM/DL Hematocrit 39.1 % Mean Corpuscular Volume 92.3 FL Mean Corpuscular Hemoglobin 30.8 PG Mean Corpuscular Hemoglobin Concent 33.4 % Red Cell Distribution Width 14.7 % Platelet Count 254 TH/MM3 Mean Platelet Volume 9.7 FL Neutrophils (%) (Auto) 33.5 % Lymphocytes (%) (Auto) 53.8 % Monocytes (%) (Auto) 9.4 % Eosinophils (%) (Auto) 2.5 % Basophils (%) (Auto) 0.8 % Neutrophils # (Auto) 1.9 TH/MM3 Lymphocytes # (Auto) 3.1 TH/MM3 Monocytes # (Auto) 0.5 TH/MM3 Eosinophils # (Auto) 0.1 TH/MM3 Basophils # (Auto) 0.0 TH/MM3 CBC Comment DIFF FINAL Differential Comment Prothrombin Time 10.9 SEC Prothromb Time International Ratio 1.1 RATIO Activated Partial Thromboplast Time 28.0 SEC Blood Urea Nitrogen 8 MG/DL Creatinine 0.96 MG/DL Random Glucose 86 MG/DL Total Protein 8.8 GM/DL Albumin 3.7 GM/DL Calcium Level 8.8 MG/DL Alkaline Phosphatase 66 U/L Aspartate Amino Transf (AST/SGOT) 13 U/L Alanine Aminotransferase (ALT/SGPT) 18 U/L Total Bilirubin 0.3 MG/DL Sodium Level 140 MEQ/L Potassium Level 3.4 MEQ/L Chloride Level 104 MEQ/L Carbon Dioxide Level 24.9 MEQ/L Anion Gap 11 MEQ/L Estimat Glomerular Filtration Rate 80 ML/MIN Salicylates Level LESS THAN 1.7 MG/DL Acetaminophen Level 11.9 MCG/ML LESS THAN 2.0 MCG/ML Ethyl Alcohol Level LESS THAN 3 MG/DL Urine Color YELLOW Urine Turbidity HAZY Urine pH 5.5 Urine Specific [place] 1.028 Urine Protein TRACE mg/dL Urine Glucose (UA) NEG mg/dL Urine Ketones 40 mg/dL Urine Occult Blood SMALL Urine Nitrite NEG Urine Bilirubin NEG Urine Urobilinogen LESS THAN 2.0 MG/DL Urine Leukocyte Esterase TRACE Urine RBC 3 /hpf Urine WBC 2 /hpf Urine Squamous Epithelial Cells 4 /hpf Urine Bacteria RARE /hpf Urine Mucus FEW /lpf Microscopic Urinalysis Comment CULT NOT INDICATED Urine Opiates Screen NEG Urine Barbiturates Screen POS Urine Amphetamines Screen NEG Urine Benzodiazepines Screen NEG Urine Cocaine Screen NEG Urine Cannabinoids Screen NEG Mental Status Examination Appearance: Appropriate Consciousness: Alert Orientation: x4 Motor Activity: Normal gait Speech: Unremarkable Language: Adequate Fund of Knowledge: Adequate Attention and Concentration: Adequate Memory: Unremarkable Mood: Appropriate Affect: Appropriate Thought Process & Associations: Intact Thought Content: Appropriate Hallucination Type: None Delusion Type: None Suicidal Ideation: No Suicidal Plan: No Suicidal Intention: No Homicidal Ideation: No Homicidal Plan: No Homicidal Intention: No Insight: Adequate Judgment: Adequate Assessment & Plan Problem List: (1) Adjustment disorder with depressed mood ICD Codes: F43.21 - Adjustment disorder with depressed mood Assessment & Plan: On psychiatric evaluation today the patient does not present any neuropsychiatric symptoms that require an immediate psychiatric intervention, the patient does not meet criteria for involuntary psychiatric admission at this moment. She denies suicidal or homicidal ideation, she denies visual and auditory hallucinations. I think that recent overdose with Fioricet could be related with a potential misuse/dependence of this medication. Extensive psychoeducation, supportive motivation provided. I will lift the Burris act. Assessment & Plan Estimated LOS: days Juanito Garcia MD Aug 05, 2017 12:10
== END 2017-08-05 09:19 | disposition home or self-care (01) ==
LOC: NEPE 21:09 → NEPJ 08-05 09:19
DX: F32.9 Major depressive disorder, single episode, unspecified (principal); F43.21 Adjustment disorder with depressed mood; R51 Headache; Z79.899 Other long term (current) drug therapy
CPT/HCPCS: 80053; 80307; 81001; 84703; 85025; 85610; 85730; 93005; 99284; J7030